=== PATIENT | female | born 1950 | race Caucasian/White ===

== ENCOUNTER → 2017-01-06 | Outpatient (CLI) | payer MEDICARE ==
--- NOTE | 2017-01-06 10:45 | ECHOS ---
STRESS ECHOCARDIOGRAM DATE OF SERVICE: 01/06/2017 MEDICATIONS:: Metoprolol, simvastatin, HCTZ, aspirin. BASELINE HEART RATE: 64 BASELINE BLOOD PRESSURE: 154/64 MAXIMUM HEART RATE: 139 MAXIMUM BLOOD PRESSURE: 209/99 85% MPHR: 132 100% MPHR: 155 METS: 6.0 MAXIMUM STAGE REACHED: II TOTAL EXERCISE TIME: 5 minutes INDICATION: Chest pain. CLINICAL INFORMATION: Baseline EKG shows sinus rhythm, normal axis, normal intervals. The patient exercised on Bong protocol for a total of 5 minutes achieving 6 METs, 90% of predicted maximal heart rate without chest pain. At peak exercise, there was [address]-segment depression noted in the inferolateral leads. Baseline echo shows normal left ventricular size, wall motion and systolic function. Post exercise, there is normal hyperdynamic response of all segments of myocardium noted. CONCLUSIONS: 1. Limited exercise tolerance. 2. Abnormal stress test by EKG criteria. 3. Negative stress echo. MMODL / IJN: [id number] /
== END | disposition home or self-care (01) ==
LOC: RADNMMAIN 09:06
PROVIDERS: ATTEND Internal Medicine Geriatric Medicine
DX: R94.39 Abnormal result of other cardiovascular function study (principal); R07.9 Chest pain, unspecified
CPT/HCPCS: 93017; 93350

== ENCOUNTER → 2019-02-23 | Outpatient (CLI) | payer MEDICARE, OTHER ==
--- NOTE | 2019-02-24 20:40 | MR ---
EXAMINATION TYPE: MR knee RT wo con DATE OF EXAM: 02/23/2019 COMPARISON: None HISTORY: Rt knee pain x 1 mo, no trauma TECHNIQUE: Multiplanar, multisequence imaging of the right knee is performed without IV contrast. FINDINGS: MEDIAL MENISCUS: Diffuse abnormal increased signal present within the body and posterior horn of the medial meniscus, some linear increased signal on sagittal image #10 thought likely to extend to the a rticular surface LATERAL MENISCUS: Root anchor of the posterior horn of the lateral meniscus is not well-defined. Ther e is some abnormal increased signal within the posterior horn of the lateral meniscus without clear e xtension to the articular surface. Some increased signal also noted within the anterior horn CRUCIATE LIGAMENTS: The anterior and posterior cruciate ligaments are intact and unremarkable. COLLATERAL LIGAMENTS: Increased signal in the popliteus tendon may be due to some tendinosis EXTENSOR MECHANISM: Visualized quadriceps and patellar tendons are intact. EFFUSION: There is suprapatellar joint effusion present POPLITEAL CYST: Semimembranosus gastrocnemius cyst is present measuring approximately 2.1 x 6 x 0.9 cm. TRICOMPARTMENT SPACES: Joint space loss present greatest in the medial compartment CARTILAGE: Grade 3 to grade IV chondromalacia at the posterior patella, medial compartment BONE MARROW SIGNAL: Probable reactive marrow signal changes are present in the subchondral location m edially in the medial compartment OTHER: Low signal foci are present within the joint space posterior to the tibia and fibula consiste nt with loose bodies measuring approximately 7 and 10 mm, loose body present within the Hennessy's cyst measures approximately 7 mm. Marginal spurring present tricompartmentally IMPRESSION: Osteoarthritis. 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
== END | disposition home or self-care (01) ==
LOC: RADMRIMAIN 08:28
PROVIDERS: ATTEND Orthopaedic Surgery Sports Medicine
DX: M17.11 Unilateral primary osteoarthritis, right knee (principal)

== ENCOUNTER → 2023-07-17 | Outpatient (CLI) | payer MEDICARE, OTHER ==
[2023-07-17 20:06] LABS: HCT 37.8 % (37.2-46.3); HGB 12.2 g/dL (12.0-15.0); MCH 31.5 pg (27.0-32.0); MCHC 32.3 g/dL (32.0-37.0); MCV 97.7 FL (80.0-97.0); Mean Platelet Volume 9.2 FL (9.5-12.2); NRBC Per 100 WBC 0 X 10*3/uL (0.00-0.01); Platelet Count 241 X 10*3/uL (140-440); RBC 3.87 X 10*6/uL (4.10-5.20); RDW 12.6 % (11.5-14.5); WBC 5.84 X 10*3/uL (4.50-10.00)
[2023-07-17 21:34] LABS: Blood Urea Nitrogen 24.3 mg/dL (9.0-27.0); Carbon Dioxide 28.1 mmol/L (21.6-31.8); Chloride 103 mmol/L (96-109); Potassium 4.4 mmol/L (3.5-5.5); Sodium 141 mmol/L (135-145)
== END | disposition home or self-care (01) ==
LOC: LABPAT 14:42
PROVIDERS: ATTEND Internal Medicine Interventional Cardiology
DX: Z01.812 Encounter for preprocedural laboratory examination (principal); R07.9 Chest pain, unspecified; R94.39 Abnormal result of other cardiovascular function study
CPT/HCPCS: 36415; 80051; 82565; 84520; 85027

== ENCOUNTER 2023-07-20 06:13 | Day surgery (SDC) | payer MEDICARE, OTHER ==
[~2023-07-20 06:13] MED LIST: ALPRAZolam 0.25 MG TAB PO PRN; NITROGLYCERIN SL TABS 0.4 MG TAB SUBLINGUAL PRN; SODIUM CHLORIDE 0.9% 1,000 ML in EMPTY BAG 1 BAG IV SCH
[2023-07-20] MEDS: ASPIRIN 325 MG TAB PO STA (06:42)
[2023-07-20] MEDS: ALPRAZolam 0.5 MG TAB PO PRN (06:42)
[2023-07-20] MEDS: SODIUM CHLORIDE 0.9% 1,000 ML IV ONE (06:42)
[2023-07-20] MEDS ORDERED: VERAPAMIL 2.5 MG/ML 2 ML AMP ONE (07:13)
[2023-07-20] MEDS ORDERED: LIDOCAINE 1% INJ 10MG/ML (20 ML MDV) ONE (07:13)
[2023-07-20] MEDS ORDERED: fentaNYL (PF) 50 MCG/ML 2 ML AMP ONE (07:15)
[2023-07-20] MEDS ORDERED: HEPARIN SODIUM 1,000 UN/ML (10ML VL) ONE (07:15)
[2023-07-20] MEDS: LIDOCAINE 2% (PF) 20 MG/ML 2 ML VIAL SQ ONE (07:39)
[2023-07-20] MEDS: fentaNYL (PF) 50 MCG/1 ML VIAL IVP ONE (07:41)
[2023-07-20] MEDS: VERAPAMIL 2.5 MG/ML 4 ML VIAL INTRAARTER ONE (07:42)
[2023-07-20 07:43] VITALS: RESP 16; TEMP 97.7
[2023-07-20] MEDS: MIDAZOLAM 2 MG/2 ML VIAL IVP ONE (07:46)
[2023-07-20] MEDS: HEPARIN SODIUM 1,000 UN/ML (10ML VL) IVP ONE (07:46)
[2023-07-20] MEDS: IOPAMIDOL-370 100ML BTL INTRATHECA ONE (07:56)
[2023-07-20] MEDS ORDERED: RX INFO: IV CONTRAST WAS GIVEN 1 EACH MISC MISCELLANE PRN (08:04)
--- NOTE | 2023-07-20 08:09 | P.CARDCATH ---
Date of Procedure: 07/20/23 Description of Procedure: Cardiac Catheterization: The patient is a 73-year-old female with a history of hypertension and hyperlipidemia who has been complaining of symptoms of dyspnea on exertion and occasional chest discomfort. She had an abnormal MPI with lateral wall ischemia. Recommendations were made regarding cardiac catheterization, the risks and the complications were discussed with the patient who is in full understanding and agreement. Procedure Description: Patient was brought to [facility] in fasting semi-sedated state after receiving Fentanyl and Benadryl achieiving moderate conscious sedated state. Using Xylocaine Anesthesia and modified Seldinger technique, a 6-Bulgarian sheath was int roduced in the right radial artery . Subsequently, selective coronary angiography was performed using a 5-Bulgarian 3.5 bend Mauri catheter. Multiple views of the coronary artery including hemiaxial views were obtained. The 6 Bulgarian pigtail catheter was used to cross the aortic valve and LVEDP was calculated. Following that, catheter and sheath were removed. Hemostasis was obtained with deployment of vascular band . There was no immediate complication. Patient was returned to room in stable condition. Of note, the patient received a total of 4500 units of intravenous heparin as well as intra-arterial verapamil. Findings: Left main: This is a large size vessel, bifurcating into LAD and left circumflex, left main has no obstructive disease LAD: This is a large size vessel, reaching to the apex with a wraparound apex segment. Giving rise to a moderately proximal diagonal branch that has a 40 to 50% proximal plaque, the rest of the vessel has no high-grade stenosis Left circumflex: This is a large nondominant vessel, giving rise to 2 obtuse marginal branch, the left circumflex and its branches have no obstructive disease RCA: This is a large dominant vessel, bifurcating distally to PDA and PLV, the right coronary artery and its branches have no evidence of obstructive disease Left Ventriculogram: Not performed Hemodynamics: There was no gradient across the aortic valve, LVEDP was 16-20 mmHg Conclusion: 1. Mild to moderate disease in the proximal first diagonal branch 2. No obstructive disease in the left circumflex and right coronary artery 3. Right dominant 4. Mildly elevated LVEDP Recommendations: I have recommended to continue medical therapy with the aggressive coronary risks modifications initiated, depending on her symptoms further recommendations will be made. The findings and the recommendations were discussed with the patient and the family and they were in full understanding and agreement. Duration of sedation is 15 minutes.
[2023-07-20] MEDS ORDERED: SODIUM CHLORIDE 0.9% 1,000 ML IV SCH (08:15)
[2023-07-20] MEDS ORDERED: DULoxetine HCL 30 MG CAPSULE.DR PO SCH (09:00)
[2023-07-20 10:42] VITALS: BP 137/76; PULSE 54
[2023-07-20] MEDS ORDERED: METOPROLOL TARTRATE 50 MG TAB PO SCH (21:00)
[2023-07-20] MEDS ORDERED: ATORVASTATIN 20 MG TAB PO SCH (21:00)
[2023-07-21] MEDS ORDERED: ASPIRIN 81 MG PO SCH (09:00)
== END 2023-07-20 12:28 | disposition home or self-care (01) ==
LOC: CATHCVL 06:13
PROVIDERS: ATTEND Internal Medicine Interventional Cardiology
DX: R94.39 Abnormal result of other cardiovascular function study (principal); R07.89 Other chest pain; I10 Essential (primary) hypertension; E78.5 Hyperlipidemia, unspecified; F10.90 Alcohol use, unspecified, uncomplicated; Z79.899 Other long term (current) drug therapy; Z87.891 Personal history of nicotine dependence
CPT/HCPCS: 99152; 93458; C1769 ×2; C1894; J2250; J1644; J2001; Q9967; J3010

== ENCOUNTER → 2023-11-15 | Outpatient (CLI) | payer MEDICARE, OTHER ==
--- NOTE | 2023-12-12 20:18 | MR ---
Site ID synapse default Patient Petrona Chandra ID [id number] Age/Gender: 73Y, F Order # N/A Procedure MR lumbar wo con Date 11/15/2023 1:48:12 PM EXAMINATION TYPE: MR lumbar spine wo con DATE OF EXAM: 11/24/2023 COMPARISON: None HISTORY: Lower back pain with bilateral lower extremity radiculopathy TECHNIQUE: Multiplanar, multisequence images of the lumbar spine were acquired without IV contrast. FINDINGS: The lumbar vertebral bodies do have preserved heights. Grade 1 anterolisthesis L3 on L4 an d L4 on L5. No pars defects identified. Multilevel disc desiccation is present. The conus medullaris and the distal spinal cord do appear unremarkable with regards to their signal intensity and morphol ogy. Prominent Schmorl's node involving the superior endplate of the L3 vertebral body with correspon ding STIR signal. Findings of [place]'s disease with flattening and abutment of the spinous processes of the lumbar spine. T12-L1: Minimal broad-based disc bulge. The spinal canal is patent. No significant neuroforaminal edith nosis. L1-L2: No significant disc pathology is identified. The spinal canal is patent. Bilateral facet arth ropathy contributing to mild bilateral neural foraminal stenosis. L2-L3: Broad-based disc bulge with ligamentum flavum buckling and bilateral facet arthropathy contri bute to mild central canal stenosis. Moderate bilateral neuroforaminal stenosis. L3-L4: Grade 1 anterolisthesis with uncovering of the disc. Broad-based disc bulge with ligamentum f lavum buckling and bilateral facet arthropathy contributing to moderate central canal stenosis. Mild to moderate bilateral neural foraminal stenosis. L4-L5: Grade 1 anterolisthesis with uncovering of the disc. Broad-based disc bulge with ligamentum fl avum buckling and bilateral facet arthropathy contributing to mild to moderate central canal stenosis . Mild bilateral neural foraminal stenosis. L5-S1: Central disc protrusion without significant central canal stenosis. Bilateral facet arthropath y with mild right neuroforaminal stenosis. The left neural foramen is patent Other significant findings: None. IMPRESSION: 1. Multilevel disc degeneration as described above. Disc bulges with ligamentum flavum bulking of fa cet arthropathy results in mild to moderate central canal stenosis at L4-L5 and moderate central lacho l stenosis at L3-L4. L5-S1 disc herniation without significant central canal stenosis. Multilevel fac et arthropathy with varying degrees of neural foraminal stenosis as described above. 2. Acute Schmorl's node involving the superior endplate of L3 vertebral body. 3. 3.Grade 1 anterolisthesis of L3 on L4 and L4 on L5.
== END | disposition home or self-care (01) ==
LOC: RADMRIMAIN 14:45
PROVIDERS: ATTEND Physical Medicine & Rehabilitation
DX: M43.16 Spondylolisthesis, lumbar region (principal); M47.26 Other spondylosis with radiculopathy, lumbar region; M48.061 Spinal stenosis, lumbar region without neurogenic claudication; M51.17 Intervertebral disc disorders with radiculopathy, lumbosacral region; M51.16 Intervertebral disc disorders with radiculopathy, lumbar region
CPT/HCPCS: 72148

== ENCOUNTER → 2024-01-03 | Outpatient (CLI) | payer MEDICARE, OTHER ==
--- NOTE | 2024-01-03 11:52 | XR ---
EXAMINATION TYPE: XR shoulder complete LT DATE OF EXAM: 01/03/2024 CLINICAL HISTORY: pain COMPARISON: NONE TECHNIQUE: Three views of the left shoulder are obtained. FINDINGS: There is no acute fracture/dislocation evident. The acromioclavicular and glenohumeral chantell int spaces appear within normal limits. The visualized ribs are intact and unremarkable. IMPRESSION: 1. There is no acute fracture or dislocation. ICD 10 NO FRACTURE, INITIAL EVALUATION [facility], , 01/03/2024 11:50 AM
--- NOTE | 2024-01-03 11:52 | XR ---
EXAMINATION TYPE: XR humerus LT DATE OF EXAM: 01/03/2024 CLINICAL HISTORY: pain TECHNIQUE: Frontal and lateral images of the left humerus are obtained. COMPARISON: None. FINDINGS: There is no acute fracture/dislocation evident. The joint spaces appear within normal limi ts. The overlying soft tissue appears unremarkable. IMPRESSION: There is no acute fracture or dislocation. ICD 10 NO FRACTURE, INITIAL EVALUATION [facility], , 01/03/2024 11:50 AM
== END | disposition home or self-care (01) ==
LOC: RADXRMAIN 10:18
PROVIDERS: ATTEND Internal Medicine Geriatric Medicine
DX: S46.012A Strain of muscle(s) and tendon(s) of the rotator cuff of left shoulder, initial encounter (principal); M79.602 Pain in left arm

== ENCOUNTER → 2024-05-23 | Outpatient (CLI) | payer MEDICARE, OTHER ==
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
== END | disposition home or self-care (01) ==
LOC: RADUSWWP 10:00
PROVIDERS: ATTEND Internal Medicine Geriatric Medicine
DX: G45.9 Transient cerebral ischemic attack, unspecified (principal); R41.82 Altered mental status, unspecified
CPT/HCPCS: 93880

== ENCOUNTER → 2024-05-25 | Outpatient (CLI) | payer MEDICARE, OTHER ==
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
== END | disposition home or self-care (01) ==
LOC: RADMRIMAIN 11:13
PROVIDERS: ATTEND Internal Medicine Geriatric Medicine
DX: I67.82 Cerebral ischemia (principal); R41.82 Altered mental status, unspecified
CPT/HCPCS: 70553; A9585

== ENCOUNTER → 2024-09-24 | Outpatient (CLI) | payer MEDICARE, OTHER ==
[2024-09-24 15:21] LABS: ALT 14 U/L (8-44); AST 24 U/L (13-35); Chol/HDL Ratio 2.83 Ratio; LDL Cholesterol,Calculated 66.7 mg/dL (0.0-131.0)
== END | disposition home or self-care (01) ==
LOC: LABWHC1 10:09
PROVIDERS: ATTEND Internal Medicine Interventional Cardiology
DX: E78.2 Mixed hyperlipidemia (principal)
CPT/HCPCS: 36415; 80061; 84450; 84460